=== PATIENT | male | born 1995 ===

== ENCOUNTER 2021-07-08 05:51 | Observation (INO) ==
[2021-07-08] MEDS ORDERED: IOPAMIDOL 125 ML BOTTLE IV ONE (05:52)
[2021-07-08] MEDS ORDERED: ONDANSETRON 4 MG/2 ML VIAL IV ONE (06:00)
[2021-07-08] MEDS ORDERED: LACTATED RINGERS 1,000 ML IV ONE (06:00)
[2021-07-08] MEDS ORDERED: morphine 4 MG/ML VIAL IV ONE (06:00)
[2021-07-08 06:14] LABS: POC Creatinine 0.9 mg/dL (0.6-1.2)
--- NOTE | 2021-07-08 06:24 | Emergency Department Note ---
Abdominal Pain HPI General Chief Complaint: Abdominal Pain Stated Complaint: abd pain Time Seen by Provider: 07/08/21 05:53 Source: patient Mode of arrival: ambulatory Limitations: no limitations History of Present Illness HPI Narrative: This is a 25-year-old male otherwise healthy presenting to the ED with progres sively worsening right lower quadrant abdominal pain that started at midnight has had nausea but no vomiting and is starting to feel like he is developing a fever. Has no medical history no similar episodes in the past and no history of hepatobiliary or pancreatic disease and no history of abdominal surgeries. Denies any stool changes genitourinary or scrotal symptoms. Pain is constant nonradiating worse with palpation. Related Data Allergies Allergy/AdvReac Type Severity Reaction Status Date / Time No Known Drug Allergies Allergy Unverified 07/08/21 05:51 Review of Systems ROS ROS Narrative: Narrative: At least 10 systems reviewed and otherwise acutely negative except as in the HPI PFSH Narrative Patient History Narrative: Narrative: Medical/Surgical/Family History All Active Problems (Updated 07/08/21 @ 06:55 by Neeraj Fry DO) Abdominal pain (Acute) Appendicitis (Acute) Social History Smoking Status: Current some day smoker Exam Narrative Narrative: Narrative: Constitutional: normally developed, no acute distress . Head: Normocephalic, atraumatic, Eyes: No Icterus, ENT: Moist mucus membranes, Neck: Supple, Cardiac: Normal heart sounds, Pulmonary: Normal respiratory effort. Breath sounds clear, no wheeze, rhonchi, rales, Gastrointestinal: Abdomen soft, non-distended, negative Florez's. Is focally tender in the right lower quadrant no rebound. Negative Rovsing, positive psoas sign. Musculoskeletal: No gross deformities, well perfused Skin: warm, dry Neuro: Alert General Limitations: no limitations Course Vital Signs Vital signs: Vital Signs Temperature 37.4 C H 07/08/21 05:52 Pulse Rate 119 H 07/08/21 05:52 Respiratory Rate 18 07/08/21 05:52 Blood Pressure 147/95 07/08/21 05:52 Pulse Oximetry (%) 99 07/08/21 05:52 Temperature 37.4 C H 07/08/21 05:52 Pulse Rate 104 H 07/08/21 06:50 Respiratory Rate 18 07/08/21 05:52 Blood Pressure 126/89 07/08/21 06:37 Pulse Oximetry (%) 97 07/08/21 06:50 MDM MDM Narrative Medical decision making narrative: Narrative: Patient with progressively worsening focal right lower quadrant pain for approximately the last 6 hours. He is nontoxic he is tender in the right lower quadrant but nonsurgical abdomen. Most suspicious for appendicitis however other intra-abdominal cause within differential work-up is initiated Patient with leukocytosis 18 CT shows simple appendicitis no perforation no abscess Spoke with on-call surgeon Dr. Salas who accepts admission, will start Zosyn, made n.p.o. Discussed plan with patient and family member all agreeable, no new complaints pain improving vital stable intermittently tracely tachycardic. Admitted at this time Lab Data Result diagrams: 07/08/21 06:07 07/08/21 06:07 Labs: Lab Results 07/08/21 07/08/21 Range/Units 06:07 06:07 WBC 18.7 H (4.5-11.0) K/mcL RBC 5.22 (4.63-6.08) M/mcL Hgb 16.5 (13.7-17.5) g/dL Hct 45.9 (40.1-51.0) % MCV 87.9 (80.0-100.0) fL MCH 31.6 (26.0-34.0) pg MCHC 35.9 (31.0-36.0) g/dL RDW 11.4 L (11.5-14.5) % Plt Count 268 (140-440) K/mcL MPV 11.3 H (7.4-10.4) fL Neut % (Auto) 84.6 H (38.0-78.0) % Lymph % (Auto) 9.3 L (15.5-49.0) % [place] % (Auto) 5.5 (1.0-12.0) % Eos % (Auto) 0.4 (0.0-7.0) % Baso % (Auto) 0.2 (0.0-2.0) % Lymph # (Auto) 1.74 (1.50-4.80) K/mcL [place] # (Auto) 1.02 H (0.10-0.90) K/mcL Eos # (Auto) 0.07 (0.00-0.70) K/mcL Baso # (Auto) 0.04 (0.00-0.30) K/mcL Absolute Neutrophils 15.81 H (1.80-8.00) K/mcL POC Creatinine 0.9 (0.6-1.2) mg/dL Discharge Plan Patient/Caregiver Discharge Instructions Pt seen by [employer] USHER/PA only: No Clinical Impression: Abdominal pain, Appendicitis Patient Disposition: Xfer As Outpt/Obs ([facility]) Condition: Fair Follow up with: No,PCP [Primary Care Provider] -
--- NOTE | 2021-07-08 06:42 | Cat Scan Report ---
CLINICAL INFORMATION: Right lower quadrant pain COMPARISON: None. TECHNIQUE: Following enteric contrast, 80 cc of Isovue-370 were injected intravenously, and 60 seconds later, 0.625 mm helical slices were obtained from the mid heart through the subtrochanteric regions. Following reconstruction, 2.5 mm sagittal, coronal and axial reformatted images were processed and reviewed at bone, lung and soft tissue windows. Five minutes later, 0.625 mm helical slices were obtained from the mid heart through the kidneys and viewed at soft tissue windows.The exam was performed using radiation dose optimization techniques including, but not limited to, automated exposure control, adjustment of the mA and/or kV according to patient size and use of iterative reconstruction technique. FINDINGS: The lung bases are clear. No effusions. The visualized heart is grossly normal. Abdominal images show the gallbladder and bile ducts, liver, both kidneys, adrenal glands, spleen, pancreas and aorta, including aortic branches, are normal in size, configuration and attenuation without focal lesion. There is no free air, free fluid or adenopathy. Pelvic images show normal urinary bladder. The prostate and seminal vesicles are normal. The appendix is located in the lateral pericecal region and is dilated with a diameter 10 mm. There is also wall thickening and inflammation in the periappendiceal fat compatible with simple appendicitis.. The stomach, small bowel, and large bowel are grossly normal. Bone windows show no osseous abnormality IMPRESSION: Simple appendicitis. The appendix is located in the lateral pericecal region. Interpreted and Authenticated by: Delvis Winn 07/08/21
[2021-07-08] MEDS ORDERED: PIPERACILLIN SODIUM/TAZOBACTAM 4.5 GM in DEXTROSE 5% IN WATER 50 ML IV ONE (06:50)
[2021-07-08] MEDS ORDERED: ONDANSETRON 4 MG/2 ML VIAL IV PRN ×3 (06:51→15:32)
[2021-07-08] MEDS ORDERED: HYDROmorphone 0.5 MG/0.5 ML SYRINGE IV ONE (06:51)
[2021-07-08] MEDS ORDERED: HYDROmorphone 0.5 MG/0.5 ML SYRINGE IV PRN (06:51)
[2021-07-08 06:52] LABS: Basophils # (Auto) 0.04 K/mcL (0.00-0.30); Basophils % (Auto) 0.2 % (0.0-2.0); Eosinophils # (Auto) 0.07 K/mcL (0.00-0.70); Eosinophils % (Auto) 0.4 % (0.0-7.0); Hematocrit 45.9 % (40.1-51.0); Hemoglobin 16.5 g/dL (13.7-17.5); Lymphocytes # (Auto) 1.74 K/mcL (1.50-4.80); Lymphocytes % (Auto) 9.3 % (15.5-49.0); Mean Cell Volume 87.9 fL (80.0-100.0); Mean Corpuscular HGB Conc 35.9 g/dL (31.0-36.0); Mean Platelet Volume 11.3 fL (7.4-10.4); Monocytes # (Auto) 1.02 K/mcL (0.10-0.90); Monocytes % (Auto) 5.5 % (1.0-12.0); Neutrophils % (Auto) 84.6 % (38.0-78.0); Platelet Count 268 K/mcL (140-440); RBC 5.22 M/mcL (4.63-6.08); Red Cell Distribution Width 11.4 % (11.5-14.5); WBC 18.7 K/mcL (4.5-11.0)
[2021-07-08 07:14] LABS: ALT/SGPT 93 U/L (<40); AST/SGOT 43 U/L (<40); Albumin 5.3 gm/dL (3.2-5.2); Alkaline Phosphatase 93 U/L (39-117); Bilirubin,Total 0.5 mg/dL (0.1-1.0); Blood Urea Nitrogen 9 mg/dL (6-20); Calcium 9.7 mg/dL (8.6-10.4); Carbon Dioxide 25 mmol/L (22-30); Chloride 98 mmol/L (96-108); Globulin 2.7 gm/dL (2.2-3.7); Glomerular Filtration Rate 123; Glucose 96 mg/dL (70-105)
--- NOTE | 2021-07-08 12:34 | General Surg History&Physical ---
HPI History of Present Illness Patient information: Note initiated : 07/08/21 at 12:25 pm Service Date, if different from initiated Date: [] Patient: Jayant Ingram a 25 y/o M admitted on for abd pain. Chief Complaint: [] Chief complaint: Acute appendicitis History of present illness: Mr. Ingram is a 25 year old M with history of onset of right-sided mid abdominal pain with nausea about midnight. The pain and nausea increased in intensity. He did not have vomiting. He was finally seen in the emergency room with find ings of tenderness in the right lower quadrant and 18,[address] of the abdomen shows acute appendicitis. Patient is accompanied by his mother. They are counseled laparoscopic appendectomy. Review of Systems All systems: reviewed and no additional remarkable complaints except as stated PFSH PFSH All Active Problems (Updated 07/08/21 @ 12:33 by Sonia Salas MD) Acute appendicitis (Acute) Abdominal pain (Acute) Appendicitis (Acute) Surgical History (Updated 07/08/21 @ 12:31 by Sonia Salas MD) S/P tendon repair MEDS/ALLERGIES Home Medications and Allergies Home Medications Medication Instructions Recorded Confirmed Type No Known Home Meds 07/08/21 07/08/21 History Allergies Allergy/AdvReac Type Severity Reaction Status Date / Time No Known Drug Allergies Allergy Unverified 07/08/21 05:51 Physical Examination Vital Signs Vital signs: Temp Pulse Resp BP Pulse Ox 98.7 F 88 16 153/75 100 07/08/21 09:44 07/08/21 09:44 07/08/21 09:44 07/08/21 09:44 07/08/21 09:44 General physical appearance General physical exam: well developed, well nourished, no distress and moderate pain Eyes Eye exam: PERRL and normal ocular movement ENT ENT exam: normal mucosa and no hearing loss Head Head exam IM: Present atraumatic, normal inspection and normocephalic Neck Neck exam: no masses, no bruits, trachea midline, no lymphadenopathy and no venous distension Cardiovascular Cardiovascular exam IM: Present normal rate and rhythm, RRR, +S1 and +S2; Absent JVD Respiratory Respiratory exam: normal expansion, normal respiratory effort and clear to auscultation Abdomen Abdomen: Present soft and tender (Right lower quadrant tenderness with mild guarding) Integumentary Integumentary: Present no rash, no growths and no abnormal pigmentation Neurologic Neurologic: Present normal coordination and normal sensation Musculoskeletal Musculoskeletal: Present normal gait and normal posture Psychiatric Psychiatric: Present oriented to time, oriented to person, oriented to place, speech is normal and memory intact Results Labs Result diagrams: 07/08/21 06:07 07/08/21 06:07 Labs: Abnormal lab results 07/08/21 07/08/21 Range/Units 06:07 06:07 WBC 18.7 H (4.5-11.0) K/mcL RDW 11.4 L (11.5-14.5) % MPV 11.3 H (7.4-10.4) fL Neut % (Auto) 84.6 H (38.0-78.0) % Lymph % (Auto) 9.3 L (15.5-49.0) % [place] # (Auto) 1.02 H (0.10-0.90) K/mcL Absolute Neutrophils 15.81 H (1.80-8.00) K/mcL AST 43 H (<40) U/L ALT 93 H (<40) U/L Albumin 5.3 H (3.2-5.2) gm/dL Diabetes panel 07/08/21 Range/Units 06:07 Sodium 138 (133-145) mmol/L Potassium 3.4 (3.3-5.1) mmol/L Chloride 98 (96-108) mmol/L Carbon Dioxide 25 (22-30) mmol/L BUN 9 (6-20) mg/dL Creatinine 0.8 (0.7-1.2) mg/dL Glucose 96 (70-105) mg/dL Calcium 9.7 (8.6-10.4) mg/dL AST 43 H (<40) U/L ALT 93 H (<40) U/L Alkaline Phosphatase 93 (39-117) U/L Total Protein 8.0 (5.9-8.4) gm/dL Albumin 5.3 H (3.2-5.2) gm/dL Calcium panel 07/08/21 Range/Units 06:07 Calcium 9.7 (8.6-10.4) mg/dL Albumin 5.3 H (3.2-5.2) gm/dL Pituitary panel 07/08/21 Range/Units 06:07 Sodium 138 (133-145) mmol/L Potassium 3.4 (3.3-5.1) mmol/L Chloride 98 (96-108) mmol/L Carbon Dioxide 25 (22-30) mmol/L BUN 9 (6-20) mg/dL Creatinine 0.8 (0.7-1.2) mg/dL Glucose 96 (70-105) mg/dL Calcium 9.7 (8.6-10.4) mg/dL Adrenal panel 07/08/21 Range/Units 06:07 Sodium 138 (133-145) mmol/L Potassium 3.4 (3.3-5.1) mmol/L Chloride 98 (96-108) mmol/L Carbon Dioxide 25 (22-30) mmol/L BUN 9 (6-20) mg/dL Creatinine 0.8 (0.7-1.2) mg/dL Glucose 96 (70-105) mg/dL Calcium 9.7 (8.6-10.4) mg/dL Total Bilirubin 0.5 (0.1-1.0) mg/dL AST 43 H (<40) U/L ALT 93 H (<40) U/L Alkaline Phosphatase 93 (39-117) U/L Total Protein 8.0 (5.9-8.4) gm/dL Albumin 5.3 H (3.2-5.2) gm/dL All other labs normal. A/P Assessment and plan (1) Acute appendicitis: Status: Acute Narrative A/P Narrative: Patient is counseled for laparoscopic appendectomy. He will be performed later this afternoon. Time Spent With Patient Time: Total time spent is greater than 50% in coordination of care (as documented) at patient's floor/unit and/or counseling patient:
[2021-07-08] MEDS: LACTATED RINGERS 1,000 ML IV SCH ×3 (14:27→20:07)
[2021-07-08] MEDS: PIPERACILLIN SODIUM/TAZOBACTAM 3.375 GM in DEXTROSE 5% IN WATER 50 ML IV SCH ×2 (14:40→19:15)
[2021-07-08] MEDS ORDERED: ROCURONIUM 10 MG/ML ML IV ONE (14:42)
[2021-07-08] MEDS ORDERED: GLYCOPYRROLATE 0.2 MG/ML VIAL IV ONE (14:42)
[2021-07-08] MEDS ORDERED: fentaNYL 250 MCG/5 ML VIAL IV ONE (14:42)
[2021-07-08] MEDS ORDERED: KETAMINE 50 MG/ML Syringe (ANEST) IV ONE (14:42)
[2021-07-08] MEDS ORDERED: MAGNESIUM SULFATE 2 GM/50 ML BAG IV ONE (14:42)
[2021-07-08] MEDS ORDERED: LIDOCAINE HCL/PF 100 MG/5 ML SYRINGE IV ONE (14:42)
[2021-07-08] MEDS ORDERED: PROPOFOL 200 MG/20 ML VIAL IV ONE (14:42)
[2021-07-08] MEDS ORDERED: SUGAMMADEX SODIUM 200 MG/2 ML VIAL IV ONE (14:42)
[2021-07-08] MEDS ORDERED: DEXAMETHASONE 10 MG/ML VIAL ONE (14:42)
[2021-07-08] MEDS ORDERED: ONDANSETRON 4 MG/2 ML VIAL ONE (14:42)
[2021-07-08] MEDS ORDERED: BENZOCAINE/MENTHOL 1 LOZENGE PO PRN (15:32)
[2021-07-08] MEDS ORDERED: IPRATROPIUM/ALBUTEROL 3 ML AMPUL.NEB NEB PRN (15:32)
[2021-07-08] MEDS ORDERED: MEPERIDINE 50 MG/ML VIAL IM PRN (15:32)
[2021-07-08] MEDS ORDERED: MEPERIDINE 25 MG/ML VIAL IV PRN (15:32)
[2021-07-08] MEDS ORDERED: METHOCARBAMOL 1,000 MG/10 ML VIAL IV PRN (15:32)
[2021-07-08] MEDS ORDERED: KETOROLAC 30 MG/ML VIAL IV PRN (15:32)
[2021-07-08] MEDS ORDERED: ACETAMINOPHEN 1,000 MG/100 ML BAG IV ONE (15:32)
[2021-07-08] MEDS ORDERED: PROMETHAZINE 25 MG/ML VIAL IM PRN (15:32)
--- NOTE | 2021-07-08 15:38 | Brief Operative Note ---
Brief Operative Note Date of procedure: 07/08/21 Pre-op diagnosis: acute appendicitis Post-op diagnosis: other (acute appendicitis) Procedure: laparoscopic appendectomy Grafts/Implants: No Anesthesia: GETA Findings: acute suppurative appendicitis Complications: none Surgeon: Sonia Salas Estimated blood loss (cc): 10 Specimens Removed/Pathology: other (appendix) Condition: stable Disposition: PACU
[2021-07-08] MEDS ORDERED: LACTATED RINGERS 1,000 ML IV SCH (15:45)
[2021-07-08] MEDS: fentaNYL 100 MCG/2 ML VIAL IV PRN ×2 (16:33→16:40)
[2021-07-08] MEDS: 0.9 % SODIUM CHLORIDE 10 ML SYRINGE IV SCH ×2 (17:19→21:19)
[2021-07-08] MEDS: ACETAMINOPHEN 1,000 MG/100 ML BAG IV SCH (22:01)
[2021-07-09] MEDS: PIPERACILLIN SODIUM/TAZOBACTAM 3.375 GM in DEXTROSE 5% IN WATER 50 ML IV SCH ×3 (00:39→12:23)
[2021-07-09] MEDS: ACETAMINOPHEN 1,000 MG/100 ML BAG IV SCH ×3 (04:11→12:15)
[2021-07-09] MEDS: 0.9 % SODIUM CHLORIDE 10 ML SYRINGE IV SCH (05:31)
[2021-07-09 07:03] LABS: Basophils # (Auto) 0.01 K/mcL (0.00-0.30); Basophils % (Auto) 0.1 % (0.0-2.0); Eosinophils # (Auto) 0 K/mcL (0.00-0.70); Eosinophils % (Auto) 0 % (0.0-7.0); Hematocrit 42.9 % (40.1-51.0); Lymphocytes # (Auto) 0.82 K/mcL (1.50-4.80); Mean Cell Volume 90.7 fL (80.0-100.0); Mean Platelet Volume 10.9 fL (7.4-10.4); Monocytes # (Auto) 0.46 K/mcL (0.10-0.90); Monocytes % (Auto) 3.9 % (1.0-12.0); Platelet Count 262 K/mcL (140-440); RBC 4.73 M/mcL (4.63-6.08); Red Cell Distribution Width 11.6 % (11.5-14.5); WBC 11.7 K/mcL (4.5-11.0)
[2021-07-09 09:18] LABS: ALT/SGPT 79 U/L (<40); AST/SGOT 34 U/L (<40); Albumin 4.7 gm/dL (3.2-5.2); Albumin/Globulin Ratio 1.8 (1.0-2.3); Alkaline Phosphatase 74 U/L (39-117); Bilirubin,Direct < 0.2 mg/dL (0-0.3); Bilirubin,Total 0.7 mg/dL (0.1-1.0); Blood Urea Nitrogen 7 mg/dL (6-20); Calcium 9.3 mg/dL (8.6-10.4); Carbon Dioxide 24 mmol/L (22-30); Chloride 101 mmol/L (96-108); Globulin 2.6 gm/dL (2.2-3.7); Glomerular Filtration Rate 117; Glucose 120 mg/dL (70-105); Lactate Dehydrogenase 181 U/L (135-225); Phosphorous 3.3 mg/dL (2.5-4.5); Triglycerides 65 mg/dL (<150); Uric Acid 1.9 mg/dL (2.5-8.0)
--- NOTE | 2021-07-09 10:26 | Discharge Summary ---
Discharge Provider Provider Patient information: Note initiated : 07/09/21 at 10:20 am Service Date, if different from initiated Date: [] Patient: Jaynat Ingram 25 y/o M admitted on 07/08/21 for abd pain. Chief Complaint: [] Date of admission: 07/08/21 17:22 Discharge date: 07/09/21 Primary care physician: PCP No Admitting clinician: Sonia Salas Attending physician on admission: Sonia Salas Consults: 07/08/21 Consult to Physician [CONS] Stat Comment: Consulting Provider: Sonia Salas Reason For Exam: Physician to Consult Attending physician on discharge: Sonia Salas Discharging clinician: Sonia Salas COURSE Hospital Course Hospital course: 25-year-old male admitted for evaluation of right lower quadrant pain. Patient had set of severe pain around midnight prior to admission. This was followed by multiple episodes of nausea vomiting. He was seen in the emergency room and was noted to have a white count 18,700. CT of the abdomen confirmed acute sinusitis. Laparoscopic appendectomy was formed yesterday. He did well during the night and is asymptomatic at this time except for mild incisional discomfort. Patient is stable for discharge home. His white blood is decreased 11,500. Discharge diagnosis: Acute appendicitis Reason for admission: acute appendicitis Procedures: Laparoscopic appendectomy Pertinent studies/significant findings: CT of abdomen and pelvis with IV contrast Complications: None Time Spent with Patient Time attestation: Total time spent providing and/or coordinating discharge services: Physical Examination Vital Signs Vital signs: Temp Pulse Resp BP Pulse Ox 98.3 F 70 18 114/70 98 07/09/21 08:00 07/09/21 08:00 07/09/21 08:00 07/09/21 08:00 07/09/21 08:00 General physical appearance General physical exam: well developed, well nourished, no distress and moderate pain Eyes Eye exam: PERRL and normal ocular movement ENT ENT exam: normal mucosa and no congestion Head Head exam IM: Present atraumatic, normal inspection and normocephalic Neck Neck exam: no masses, no bruits, trachea midline, no lymphadenopathy and no venous distension Cardiovascular Cardiovascular exam IM: Present normal rate and rhythm, RRR, +S1 and +S2; Absent JVD Respiratory Respiratory exam: normal expansion, normal respiratory effort and clear to auscultation Abdomen Abdomen: Present soft, tender (Mild tenderness around port sites) and bowel sounds (Normal active bowel sounds); Absent distended Integumentary Integumentary: Present no rash, no growths and no abnormal pigmentation Neurologic Neurologic: Present normal coordination and normal sensation Musculoskeletal Musculoskeletal: Present normal gait and normal posture Psychiatric Psychiatric: Present oriented to time, oriented to person, oriented to place, speech is normal and memory intact Discharge Plan Patient/Caregiver Discharge Instructions Activity: increase activity as tolerated Diet: Regular Diet Prescriptions: New oxycodone-acetaminophen [Endocet] 10-325 mg Tablet 1 tab PO Q4H PRN (Reason: Pain) Qty: 30 0RF levofloxacin [levofloxacin] 750 MG tablet 750 mg PO DAILY Qty: 7 0RF Follow Up Plan Follow up with: Iesha,PCP [Primary Care Provider] - Patient Disposition: Home, Self-Care Prognosis: Good Rehab Potential: Good I certify that the patient requires SNF services: No Overall status at discharge: patient is progressing back to baseline Discharge Orders: Discharge Order (Routine); Ordered 07/09/21 Ordered By: Sonia Salas Pending Pending Pending: Resuscitation Status Resuscitate (Full Code) Diet Regular Diet Start WedJul 09 0800 Hydromorphone HCl (Hydromorphone 0.5 Mg/0.5 Ml Syringe) 0.5 mg IV Q2HP PRN; Protocol PRN Reason: Per Pain Protocol Last Admin: 07/09/21 07:26 Dose: 0.5 mg Documented by: SARAH Piperacillin Sod/Tazobactam (Sod 3.375 gm/ Dextrose) 50 mls @ 100 mls/hr IV Q6H [facility]; Protocol Last Admin: 07/09/21 05:32 Dose: 100 mls/hr Documented by: Infusion: 07/09/21 01:10 Dose: 0 mls/hr Documented by: Admin: 07/09/21 00:39 Dose: 100 mls/hr Documented by: Infusion: 07/08/21 19:45 Dose: 0 mls/hr Documented by: Admin: 07/08/21 19:15 Dose: 100 mls/hr Documented by: Infusion: 07/08/21 15:10 Dose: 0 mls/hr Documented by: Admin: 07/08/21 14:40 Dose: 100 mls/hr Documented by: MARISOL Acetaminophen (Ofirmev) 1,000 mg in 100 mls @ 200 mls/hr IV Q6H CHARLENE Stop: 07/09/21 21:59 Last Admin: 07/09/21 09:48 Dose: Not Given Documented by: Infusion: 07/09/21 04:45 Dose: 0 mls/hr Documented by: Admin: 07/09/21 04:11 Dose: 200 mls/hr Documented by: Infusion: 07/08/21 22:32 Dose: 0 mls/hr Documented by: Admin: 07/08/21 22:01 Dose: 200 mls/hr Documented by: ANTONI Sodium Chloride (0.9 % Sodium Chloride 10 Ml Syringe) 10 ml IV Q8 CHARLENE Last Admin: 07/09/21 05:31 Dose: Not Given Documented by: Admin: 07/08/21 21:19 Dose: Not Given Documented by: Admin: 07/08/21 17:19 Dose: Not Given Documented by: GASTON Shift Summary 07/09/21 05:23 Shift Summary by Bee Sharma Addendum entered by Bee Sharma R.N. 07/09/21 05:46: Lines: 20g in RAC is SL Original Note: Primary Diagnosis: Lap Appy Registration Status: Extended Recovery Day of Hospitalization: 07/08/21 Date of Surgery (if applicable): 07/08/21 Pertinent Medical Dx/Issues (may be more than one): Appendicitis Interventions (O2, wounds, diuresis, etc): 3 Abd Lap sites covered over with film dressings. Scant bloody drainage noted. Vital Signs with Trends: VSS on RA. Meds (abo, pain, BP, etc): Pt has scheduled IFIRMEV IV q6 hrs. PRN Lines/Tubes: 20g in RAC running LR @ 84mls/hr Oxygen needs (home use vs. current use): None Lab/Rad results: Cardiac Rhythm (if applicable), alarms, trends: N/A Date of last BM: No BM on this shift Elimination: Toilet/urinal. Total Output: 1250 mls Recommendations/questions for MD (DC Gutiérrez? DC CM? PICC needed?): Trends (is the patient improving?): Activity: Up independently to and from bathroom Expected date of discharge: Today Additional Info: Alert and oriented x4. Able to make needs known. Regular diet. Denied c/o or s/s of n/v/d, chills and was afebrile on this shift. Wearing bilateral anti-embolism stockings on this shift. Initialized on 07/09/21 05:23 - END OF NOTE
--- NOTE | 2021-07-10 17:38 | Surgical Pathology Report ---
Histology Microscopic Diagnosis Specimen A- APPENDIX, APPENDECTOMY: --- ACUTE APPENDICITIS WITH SEROSITIS. (EBD) Procedural Impression Acute appendicitis. Gross Description Received in formalin labeled appendix, is a mar-hawkins appendix. It is 6.4 cm in length by up to 1.1 cm in diameter. The resection margin is stapled and inked black. The serosa is mar-hawkins with areas of mar-hawkins possible exudate on the surface. There is up to 2 cm of hawkins attached fat. Sectioning reveals red-brown fecal material. Grossly there are no areas of perforation identified. Copyholder sections are submitted in one cassette. (SCB:[email or web address]) Electronically Signed Chyna Solorio MD, FCAP Electronically Signed 07/10/2021 13:07
--- NOTE | 2021-08-07 15:55 | Operative Note ---
DATE OF OPERATION: 07/08/2021 PREOPERATIVE DIAGNOSIS: Acute appendicitis. POSTOPERATIVE DIAGNOSIS: Acute appendicitis. PROCEDURE: Laparoscopic appendectomy. SURGEON: Sonia Salas M.D. FINDINGS: Acute suppurative appendicitis. DESCRIPTION OF PROCEDURE: Under general anesthesia, the patient's abdomen was prepped and draped in a sterile field. Supraumbilical midline incision was made and Veress needle was inserted uneventfully. Abdomen was insufflated with 2.5 liters of CO2. A 12 mm port was placed. Laparoscope was placed. Under videoscopic guidance, a 5 mm port was placed in the suprapubic midline and a 12 mm port in the left lower quadrant. The patient was placed in deep Trendelenburg position and rotated to the left. Inspection revealed an acutely inflamed, suppurative appendix lateral to the cecum. It was grasped with a self-retaining grasper and positioned. A window was made in the mesoappendix at the base. The base of the appendix was transected using Endo JACLYN stapler. The mesoappendix was transected using the Endo JACLYN stapler. Appendix was placed in an Endopouch and retrieved. Irrigation was carried out. There was no significant blood loss. CO2 was allowed to escape from the abdomen and the ports were removed. The fascia at the umbilicus was closed with 0 Vicryl. Subcutaneous tissue was closed with 2-0 Vicryl. Skin was closed with indra. The patient tolerated the procedure well. He was awakened, transferred to a bed, and taken to the postanesthetic care unit in satisfactory condition. LCS:esau Job ID: [id number] Doc ID: [id number] Sonia Salas M.D.
== END 2021-07-09 13:35 | disposition home or self-care (01) ==
LOC: ED 05:51 → SUR 09:10 → MEDSUR 09:10 → ED 09:10 → MEDSUR 16:40
PROVIDERS: ADMIT Family Medicine Adult Medicine; ATTEND Family Medicine Adult Medicine